=== PATIENT | female | born 2000 | race Caucasian/White ===

== ENCOUNTER 2023-04-04 15:15 | Emergency (ER) | payer OTHER, SELFPAY ==
[2023-04-04 15:20] VITALS: BP 141/84
--- NOTE | 2023-04-04 15:46 | ED.SKININJ ---
HPI-Injury
General
Chief Complaint: Head Injury
Source: patient
Exam Limitations: none
Time Seen by Provider: 04/04/23 15:38
Travel History
Have you had any contact with someone who has COVID-19?: No
Do you have any symptoms of coronavirus? Fever > 100 degrees, chills, cough, shortness of breath, sore throat, loss of taste or smell, muscle aches, or headache?: No
History of Present Illness-Injury
Initial Injury comments:
22-year-old female presents for evaluation of head injury. She slipped and fell backwards on the pavement yesterday. Since then she has had a severe headache with vomiting. She notes slight blurry vision. She also notes neck pain. She is not
anticoagulated. No known loss of consciousness. States she has been sleeping all day secondary to the headache. No other complaints at this time
Past History
Past History
ED Past Medical History: Other (ADHD, ovarian cysts, multiple concussions)
ED Past Surgical History: None
Social History
Tobacco: Former smoker
Alcohol: Occasional
Drug: None
Personal: Single
Living: alone
Employment: Employed
Phy Exam
Physical Exam
Physical Exam:
General: Well-appearing female no acute respiratory distress
HEENT: Normocephalic atraumatic pupils slightly dilated bilaterally minimally reactive to light. TMs normal no periorbital ecchymosis.
Musculoskeletal exam: Tender over the midline of the cervical spine
Neurologic: Alert normal gait conversing appropriately extract motions intact good strength and sensation to the upper lower extremities
Skin is intact without laceration or abrasion
Course
Orders/Labs/Results
Orders:
Orders
04/04/23 15:44
CT Head W/o Iv Contrast Urgent
Comment:
Reason For Exam: fall, head injury
CR Cervical Spine 2 or 3 Vw Urgent
Comment:
Reason For Exam: neck pain after fall
Vital Signs
Initial and Last Documented VS:
Initial Vital Signs
Temp Pulse Resp BP Pulse Ox
98.4 F 109 16 141/84 98
04/04/23 15:20 04/04/23 15:20 04/04/23 15:20 04/04/23 15:20 04/04/23 15:20
Last Documented Vital Signs
Temp Pulse Resp BP Pulse Ox
98.4 F 109 16 141/84 98
04/04/23 15:20 04/04/23 15:20 04/04/23 15:20 04/04/23 15:20 04/04/23 15:20
MDM/Problems Addressed
Differential Diagnosis Includes:
Severe headache after fall with vomiting and neck pain. Consider contusion versus concussion versus intracranial hemorrhage. Will check CT scan of head and cervical spine x-ray.
*Critical Care Note
Total Time (30-74mins, 75-104mins- exclusive of procedures): Not Applicable
Update Note
Update Note:
CT of head negative. X-ray cervical spine shows reversal of the normal curvature consistent with spasm. Concussion precautions given recommended rest
ED Attending Note
-
Portions of this chart may have been created with voice recognition software.� Occasional wrong word or��sound alike� substitutions may have occurred due to the inherent limitations of voice recognition software.
Discharge Plan
Departure
Patient Disposition: Home (Routine Discharge)
Date of Disposition: 04/04/23
Time of Disposition: 17:15
Patient with high blood pressure during this ER visit?: No
Discharge Problem:
Concussion
Instructions: Concussion, Adult (DC)
Prescriptions:
No Action
dextroamphetamine-amphetamine [Adderall] 30 MG tablet
30 mg PO Daily
Referrals:
NONE,* [Family Provider] -
Activity Restrictions/Additional Instructions:
Rest. Use ibuprofen or Tylenol. Avoid excessive physical or cognitive activity. Return if worse otherwise follow-up with family doctor
Interventions
Interventions:
ED- Fall Risk Assessment Last Done: 04/04/23 16:16
*ED COVID-19 Vaccine History Last Done: 04/04/23 15:20
ED- Neurological Assessment Last Done: 04/04/23 16:16
ED-Skin Assessment Last Done: 04/04/23 16:16
== END 2023-04-04 17:21 | disposition home or self-care (01) ==
LOC: EMR 15:15
PROVIDERS: EMERGENCY PHYSICIAN Emergency Medicine
DX: S06.0XAA Concussion with loss of consciousness status unknown, initial encounter (principal); W01.0XXA Fall on same level from slipping, tripping and stumbling without subsequent striking against object, initial encounter; Z87.891 Personal history of nicotine dependence
CPT/HCPCS: 99284; 70450; 72040